=== PATIENT | male | born 1995 | race Caucasian/White ===

== ENCOUNTER 2017-11-19 03:52 | Emergency (ER) | payer OTHER ==
[2017-11-19] MEDS ORDERED: ACETAMINOPHEN 325 MG TABLET PO ONE (04:06)
--- NOTE | 2017-11-19 05:30 | RADIOLOGY REPORT (SQ) ---
EXAM DESCRIPTION: HAND RIGHT 3 VIEWS CLINICAL HISTORY: 22 years, Male, punched refridgerator COMPARISON: None. NUMBER OF VIEWS: 3 LIMITATIONS: None. FINDINGS: Small swelling of the dorsal hand at the level of the second-fourth metacarpophalangeal joints. No significant bone or joint defect. No radiopaque foreign body. IMPRESSION: Swelling. 2010 [employer]- All Rights Reserved
[2017-11-19] MEDS ORDERED: LIDOCAINE 1% INJ-PF (10 MG/ML) 30 ML SDV INJ ONE (05:49)
[2017-11-19] MEDS ORDERED: AZITHROMYCIN 250 MG TABLET PO ONE (05:49)
[2017-11-19] MEDS ORDERED: CEFTRIAXONE INJ 250 MG VIAL IM ONE (05:49)
--- NOTE | 2017-11-19 05:58 | ER Document Report ---
HPI - HPI Patient complains to provider of: hand pain Pain Level: 3 Context: Patient is a 22-year-old male who comes emergency department for chief complaint of right hand injury. He states he punched a fridge. He denies any other locations of injury. He also states that about 10 days ago he had a unprotected sexual encounter and he just started having discomfort with urination today, he wants to be checked and treated. He denies any rash, denies any current symptoms. - CONSTITUTIONAL Constitutional: DENIES: Fever, Chills - MUSCULOSKELETAL Musculoskeletal: REPORTS: Extremity pain Past Medical History - General Information source: Patient - Social History Smoking Status: Never Smoker Chew tobacco use (# tins/day): No Frequency of alcohol use: Social Drug Abuse: None Lives with: Alone Family History: Reviewed & Not Pertinent Patient has suicidal ideation: No Patient has homicidal ideation: No - Medical History Medical History: Negative Renal/ Medical History: Denies: Hx Peritoneal Dialysis Surgical Hx: Negative - Immunizations Immunizations up to date: Yes Hx Diphtheria, Pertussis, Tetanus Vaccination: Yes Vertical Provider Document - CONSTITUTIONAL General Appearance: WD/WN, No Apparent Distress - INFECTION CONTROL TRAVEL OUTSIDE OF THE [place] IN LAST 30 DAYS: No - HEENT HEENT: Atraumatic, Normocephalic - NECK Neck: Normal Inspection - RESPIRATORY Respiratory: Breath Sounds Normal, No Respiratory Distress O2 Sat by Pulse Oximetry: 98 - CARDIOVASCULAR Cardiovascular: Regular Rate, Regular Rhythm - GI/ABDOMEN Gastrointestinal: Abdomen Soft, Abdomen Non-Tender - MUSCULOSKELETAL/EXTREMETIES Musculoskeletal/Extremeties: Tender - Right hand swelling over the third and fourth MCP joints, full range of motion of the hand, normal capillary refill and sensation, no snuffbox tenderness, otherwise normal upper extremity exam. - NEURO Level of Consciousness: Awake, Alert, Appropriate - DERM Integumentary: Warm, Dry, No Rash Course - Re-evaluation Re-evalutation: X-rays show no fracture or dislocation. Counseled patient on treatment of soft tissue swelling from injury. He denies any HI. Discussed with patient, patient will be treated for potential STD exposure, he is asymptomatic at this time with no discharge, rash, or other abnormality. Instructed him to avoid centrally course for 7-10 days and have his partner treated. He will be contacted at [phone]. 11/20/17 07:55 Called patient and informed him of positive results. - Vital Signs Vital signs: Temp Pulse Resp BP Pulse Ox 98.3 F 84 18 145/81 H 98 11/19/17 03:57 11/19/17 03:57 11/19/17 03:57 11/19/17 03:57 11/19/17 03:57 Discharge - Discharge Clinical Impression: Dysuria Injury of right hand Qualifiers: Encounter type: initial encounter Qualified Code(s): S69.91XA - Unspecified injury of right wrist, hand and finger(s), initial encounter Condition: Stable Disposition: HOME, SELF-CARE Additional Instructions: X-ray does not show a fracture, only shows soft tissue swelling. Apply ice to the hand 3-4 times a day, take naproxen as prescribed, rest your hand. Symptoms should resolve with time. You have been covered for transmitted infection. Results are pending. Follow-up with primary care. Return for any concerning symptoms including severe swelling or redness or any other concerning symptoms. Prescriptions: Naproxen 500 mg PO BID #20 tablet
[2017-11-19 06:23] VITALS: BP 121/66
[2017-11-19 07:58] LABS: CHLAM PCR DETECTED (NOT DETECT); GON PCR NOT DETECTED (NOT DETECT)
== END 2017-11-19 06:23 | disposition home or self-care (01) ==
LOC: ER 03:52
DX: S69.91XA Unspecified injury of right wrist, hand and finger(s), initial encounter (principal); R30.0 Dysuria; W22.8XXA Striking against or struck by other objects, initial encounter
CPT/HCPCS: 99283; 96372; 87491; 87591; 73130; J3490; J0696